=== PATIENT | male | born 1970 | race Caucasian/White ===

== ENCOUNTER 2016-08-13 17:45 | Emergency (ER) | payer BC, OTHER ==
[~2016-08-13] VITALS: Ht 185.4 cm; Wt 100.2 kg
[~2016-08-13 17:45] MED LIST: CYCL5TAB PO
[2016-08-13 18:00] VITALS: TEMP 36.8; Ht 185.4 cm; Wt 100.2 kg
[2016-08-13 18:41] LABS: BASO ABS # 0.06 K/uL (0-0.2); COMPLETE YES; EOS % 2.3 %; HEMATOCRIT 43.8 % (42-52); IG% 0.2 %; LYMPH % 33.1 %; LYMPH ABS # 2.05 K/uL (1.2-3.4); MEAN CELL VOLUME 83.1 fL (80-100); MEAN CORPUSCULAR HEMOGLOBIN 29.2 pg (25-34); MEAN CORPUSCULAR HGB CONC 35.2 g/dl (32-36); MEAN PLATELET VOLUME 9.6 fL (7.4-10.4); MONO % 7.4 %; PLATELET COUNT 235 K/uL (130-400); RED BLOOD COUNT 5.27 M/uL (4.7-6.1)
[2016-08-13] MEDS ORDERED: IBUP-1050 PO (18:46)
--- NOTE | 2016-08-13 19:01 | DIAGNOSTIC IMAGING REPORT ---
KUB CLINICAL HISTORY: Constipation by history. Left side abd pain COMPARISON STUDY: No previous studies for comparison. FINDINGS: The soft tissues, psoas shadows, renal outlines and intestinal gas pattern appear normal. There is no evidence for bowel obstruction. No abnormal abdominal calcifications are seen. IMPRESSION: Normal study. Electronically signed by: Eliseo Pearce M.D. 08/13/2016 7:00 PM Dictated Date/Time: 08/13/2016 6:59 PM
[2016-08-13 19:11] LABS: URINE APPEARANCE CLEAR (CLEAR); URINE BILIRUBIN NEG (NEG); URINE COLOR YELLOW; URINE NITRITE NEG (NEG); URINE SPECIFIC GRAVITY 1.023 (1.000-1.030); UROBILINOGEN NEG (NEG); ZZUR CULT IF INDIC CLEAN CATCH NO
[2016-08-13 19:15] LABS: MANUAL MICROSCOPIC REQUIRED? NO; REVIEW REQ? NO
[2016-08-13 19:18] LABS: ALB/GLOB RATIO 0.9 (0.9-2); BUN/CREATININE RATIO 11.8 (10-20); CALCIUM 8.4 mg/dl (8.5-10.1); CREATININE 0.99 mg/dl (0.60-1.40); POTASSIUM 3.6 mmol/L (3.5-5.1)
[2016-08-13 20:05] VITALS: BP 147/86; PULSE 77; O2SAT 95
--- NOTE | 2016-08-13 21:19 | EMERGENCY ROOM VISIT NOTE ---
History First contact with patient: 18:04 Chief Complaint: RECTAL BLEEDING Stated Complaint: BLOOD IN STOOL, SLIGHT ABDOMINAL PAIN Nursing Triage Summary: Patient ambulatory to triage, states "For the last couple of days, I have had mild abdominal pain. An annoying pain. I haven't been having full bowel movements. I used the restroom this afternoon and had a large BM of diarrhea. It looked like I had blood in my stool." Patient denies any nausea or vomiting. History of Present Illness The patient is a 46 year old male who presents to the Emergency Room with complaints of red blood in his stool after a bowel movement this afternoon. Today is the patient's birthday and he states that he went to the [employer] for breakfast and [employer] for lunch. He states that afterwards he had a large bowel movement that was initially diarrhea, and then formed stool. When he looked in the commode he noticed streaking of bright red blood. The patient had one episode in his lifetime of this previously, that ultimately ended with him seeing a GI where testing was reportedly negative. The patient has not had fever or chills. He has some mild left-sided abdominal discomfort. He does not have perirectal pain. No history of inflammatory bowel disease. He rates his discomfort a 2/10. Review of Systems More than 10 systems were reviewed and otherwise negative with the exception of history of present illness. Past Medical/Surgical History No chronic medical disease Family History Cancer Heart disease Hypertension Seizures Social History Smoking Status: Former Smoker Alcohol Use: occasionally Marital Status: single Occupation Status: employed Current/Historical Medications Scheduled PRN Ibuprofen (Advil), 400 MG PO Q6 PRN for Headache or Pain Allergies Coded Allergies: No Known Allergies (Unverified , 08/13/16) Physical Exam Vital Signs Date Time Temp Pulse Resp B/P Pulse Ox O2 Delivery O2 Flow Rate FiO2 08/13/16 20:05 77 18 147/86 95 08/13/16 18:00 36.8 83 18 145/89 95 Room Air Pain Rating (0-10): 0 Physical Exam VITALS: Vitals are noted on the nurse's note and reviewed by myself. Vital signs stable. GENERAL: Well-developed, well-nourished, white male, who is in no acute distress and resting comfortably. Patient is cooperative with the examination. HEAD: Normocephalic atraumatic. NECK: Supple without nuchal rigidity. No lymphadenopathy. No thyromegaly. Cervical spine is nontender. HEART: Regular rate and rhythm without murmurs gallops or rubs. LUNGS: Clear to auscultation bilaterally without wheezes, rales or rhonchi. No retractions or accessory muscle use. ABDOMEN: Positive normal bowel sounds x 4. Soft, nontender, without masses or organomegaly. No guarding or rebound tenderness. RECTAL: No significant perirectal fissure, abscess, or fistula. No hemorrhoids. No palpable abnormalities on internal exam. Guaiac negative. MUSCULOSKELETAL: No muscle atrophy, erythema, or edema noted. Full range of motion without joint tenderness in all extremities. Medical Decision & Procedures ER Provider Diagnostic Interpretation: KUB CLINICAL HISTORY: Constipation by history. Left side abd pain COMPARISON STUDY: No previous studies for comparison. FINDINGS: The soft tissues, psoas shadows, renal outlines and intestinal gas pattern appear normal. There is no evidence for bowel obstruction. No abnormal abdominal calcifications are seen. IMPRESSION: Normal study. Laboratory Results 08/13/16 18:25 Red Blood Count 5.27, Mean Corpuscular Volume 83.1, Mean Corpuscular Hemoglobin 29.2, Mean Corpuscular Hemoglobin Concent 35.2, Mean Platelet Volume 9.6, Neutrophils (%) (Auto) 56.0, Lymphocytes (%) (Auto) 33.1, Monocytes (%) (Auto) 7.4, Eosinophils (%) (Auto) 2.3, Basophils (%) (Auto) 1.0, Neutrophils # (Auto) 3.48, Lymphocytes # (Auto) 2.05, Monocytes # (Auto) 0.46, Eosinophils # (Auto) 0.14, Basophils # (Auto) 0.06 08/13/16 18:25 Test 08/13/16 18:25 08/13/16 18:35 White Blood Count 6.20 K/uL (4.8-10.8) Red Blood Count 5.27 M/uL (4.7-6.1) Hemoglobin 15.4 g/dL (14.0-18.0) Hematocrit 43.8 % (42-52) Mean Corpuscular Volume 83.1 fL (80-100) Mean Corpuscular Hemoglobin 29.2 pg (25-34) Mean Corpuscular Hemoglobin Concent 35.2 g/dl (32-36) Platelet Count 235 K/uL (130-400) Mean Platelet Volume 9.6 fL (7.4-10.4) Neutrophils (%) (Auto) 56.0 % Lymphocytes (%) (Auto) 33.1 % Monocytes (%) (Auto) 7.4 % Eosinophils (%) (Auto) 2.3 % Basophils (%) (Auto) 1.0 % Neutrophils # (Auto) 3.48 K/uL (1.4-6.5) Lymphocytes # (Auto) 2.05 K/uL (1.2-3.4) Monocytes # (Auto) 0.46 K/uL (0.11-0.59) Eosinophils # (Auto) 0.14 K/uL (0-0.5) Basophils # (Auto) 0.06 K/uL (0-0.2) RDW Standard Deviation 38.4 fL (36.4-46.3) RDW Coefficient of Variation 12.8 % (11.5-14.5) Immature Granulocyte % (Auto) 0.2 % Immature Granulocyte # (Auto) 0.01 K/uL (0.00-0.02) Anion Gap 13.0 mmol/L (3-11) Est Creatinine Clear Calc Drug Dose 116.1 ml/min Estimated GFR () 105.4 Estimated GFR (Non- 91.0 BUN/Creatinine Ratio 11.8 (10-20) Calcium Level 8.4 mg/dl (8.5-10.1) Total Bilirubin 0.9 mg/dl (0.2-1) Aspartate Amino Transf (AST/SGOT) 50 U/L (15-37) Alanine Aminotransferase (ALT/SGPT) 119 U/L (12-78) Alkaline Phosphatase 81 U/L (45-117) Total Protein 7.3 gm/dl (6.4-8.2) Albumin 3.5 gm/dl (3.4-5.0) Globulin 3.8 gm/dl (2.5-4.0) Albumin/Globulin Ratio 0.9 (0.9-2) Chemistry Specimen Hemolysis Urine Color YELLOW Urine Appearance CLEAR (CLEAR) Urine pH 7.0 (4.5-7.5) Urine Specific [place] 1.023 (1.000-1.030) Urine Protein NEG (NEG) Urine Glucose (UA) 2+ (NEG) Urine Ketones TRACE (NEG) Urine Occult Blood NEG (NEG) Urine Nitrite NEG (NEG) Urine Bilirubin NEG (NEG) Urine Urobilinogen NEG (NEG) Urine Leukocyte Esterase NEG (NEG) ED Course Physical exam and history were performed. Nursing notes and EMR were reviewed. Patient appears to have reports of bright red blood in his stool times one episode this afternoon. IV access was established and labs were obtained. KUB was performed and did not show significant acute findings. Guaiac was negative here in the department. Exam does not show any obvious abnormalities. The patient's blood work is as above and was reviewed. He does not have significantly elevated white blood cell count, anemia, bandemia, or gross electrolyte imbalance. His labs are non-diagnostic otherwise. I discussed opposite care with the patient. He does not present with an acute surgical abdomen, despite complaining of some very mild but non-reproducible, left lower quadrant abdominal discomfort. He has normal labs, and I do not feel additional imaging is necessary at this time. I suspect that his episode today is related to a large bowel movement from overeating on his birthday. The patient was pleased with this plan and felt stable for discharge home. He was asked to return to the emergency department anytime with any new, worsening , or concerning symptoms. The chart was completed utilizing [employer] Voice Recognition Software. Grammatical errors, random word insertions, pronoun errors, and incomplete sentences are an occasional consequence of this system due to software limitations, ambient noise, and hardware issues. Any formal questions or concerns about the content, text, or information contained within the body of this dictation should be directly addressed to the provider for clarification. . Medical Decision Differential diagnosis: Etiologies such as appendicitis, diverticulitis, PUD, biliary pathology, UTI, pancreatitis, obstruction, mesenteric ischemia, aortic pathology, infections, inflammatory bowel disease, renal colic, as well as others were entertained. Impression Primary Impression: Blood in stool Departure Information Dispostion Home / Self-Care Condition GOOD Forms HOME CARE DOCUMENTATION FORM, IMPORTANT VISIT INFORMATION Patient Instructions My [facility] Additional Instructions You were seen and evaluated today on an emergency basis only. This is not a substitute for, or an effort to provide, complete comprehensive medical care. It is not possible to recognize and treat all injuries or illnesses in a single emergency department visit. For this reason it is recommended that you followup with your primary care physician's week for ongoing care and evaluation. Drink plenty fluids and remain well hydrated. Consider an [id number] stool softener such as Colace. You are welcome to return to the emergency department anytime with new, worsening, or concerning symptoms.
== END 2016-08-13 20:05 | disposition home or self-care (01) ==
LOC: C.EDB 17:47
DX: K92.1 Melena (principal); Z87.891 Personal history of nicotine dependence